=== PATIENT | female | born 1985 | race American Indian/Alaskan Native ===

== ENCOUNTER 2017-08-27 11:37 | Emergency (ER) | payer MEDICARE ==
[2017-08-27 12:15] VITALS: BP 158/66
--- NOTE | 2017-08-27 12:45 | Emergency Department Report ---
HPI - General Chief Complaint: Dental/Oral Time Seen by Provider: 08/27/17 12:40 - HPI HPI: Patient reports that she is having in mild pain to her left upper and lower to 2 days. She states she has taken several pain medication to include Tylenol 3 and other iyle-[id number]-bzzsjur medication and also antibiotic which did not help. She states that she is unable to get in with a dentist because of her insurance. Pain is 10 out of 10 and hurting. Worse with eating. No drooling, sore throat or difficulty breathing. Denies any sinus or nasal congestion. ED Past Medical Hx - Past Medical History Previous Medical History?: No - Surgical History Past Surgical History?: No - Family History Family history: no significant - Social History Smoking Status: Current Every Day Smoker Substance Use Type: None Other Social History: Single - Medications Home Medications: Home Medications Medication Instructions Recorded Confirmed Last Taken Type Amoxicillin/K Clav Tab [Augmentin 1 tab PO BID #20 tablet 05/10/14 Unknown Rx 875MG] Fluticasone Propionate [Flonase] 2 sprays NS QDAY #1 spray 05/10/14 Unknown Rx Loratadine [Claritin] 10 mg PO DAILY #30 tablet 05/10/14 Unknown Rx predniSONE [Deltasone] 50 mg PO QDAY #5 tab 05/10/14 Unknown Rx Clindamycin [Clindamycin CAP] 300 mg PO Q8H #30 cap 08/27/17 Unknown Rx HYDROcodone/APAP 7.5-325 [Holton 1 each PO Q6HR PRN #12 tablet 08/27/17 Unknown Rx 7.5-325 mg TAB] Ibuprofen [Motrin] 600 mg PO Q8H PRN #15 tablet 08/27/17 Unknown Rx ED Review of Systems ROS: Stated complaint: MOUTH HURTING Other details as noted in HPI Comment: All other systems reviewed and negative Constitutional: no symptoms reported Eyes: denies: eye pain, eye discharge, vision change ENT: dental pain. denies: ear pain, throat pain, congestion Respiratory: no symptoms reported Cardiovascular: denies: chest pain, palpitations, dyspnea on exertion, edema, syncope Gastrointestinal: denies: nausea, vomiting Musculoskeletal: denies: back pain, arthralgia Skin: denies: rash Neurological: denies: headache Physical Exam - Physical Exam Vital Signs: Vital Signs 08/27/17 12:13 Temperature 98.2 F Pulse Rate 90 Respiratory 16 Rate Blood Pressure 158/66 O2 Sat by Pulse 100 Oximetry General: This is a 31-year-old female well-nourished well-developed in no acute distress. Physical Exam: Head: Normocephalic, atraumatic, no abrasion, no bruising and no contusion. Eyes: Biateral pupils equal and reactive to light, bilateral EOM intact.. Bilateral conjunctival and sclera without injection, normal accommodation. Ears: Bilateral EAC without any redness drainage or swelling,Bilateral TM pearly turcios, bilateral tragus is normal and nontender. No auricular abnormality. No Mastoid bones tenderness. Nose: Moist, normal mucosa. No maxillary or frontal sinus tenderness. Mouth: Moist, no pharyngeal erythema or exudate. No peritonsillar abscess. Uvula is midline and oral airways patent. tongue is normal. Noted dental caries . No Dental tenderness. no cellulitis or induration. Positive gingivitis. Positive tenderness to gum. Neck: Supple, No Cervical adenopathy, full range of motion and no C-spine tenderness. No swelling or tracheal deviation Cardiovascular: S1, S2. Regular rate and rhythm. No murmur. Capillary refill is less then 3 seconds. Lungs: Clear to auscultate bilaterally. No rhonchi, wheezes or rales. No chest wall tenderness Extremities: No clubbing, cyanosis or edema. +2 pulses. No neurovascular compromise Skin: Clean, dry and intact. No rash or lesions. Psych: Normal mood and behavior. ED Course Vital Signs 08/27/17 12:13 Temperature 98.2 F Pulse Rate 90 Respiratory 16 Rate Blood Pressure 158/66 O2 Sat by Pulse 100 Oximetry - Reevaluation(s) Reevaluation #1: 08/27/17 12:47 Patient stable throughout ED stay ED Medical Decision Making - Medical Decision Making ED course: Patient here complaining of toothache that has been ongoing. Physical findings for gingivitis and dental caries. I discussed the patient that she should follow-up with [facility] to call today to schedule an appointment. Patient given prescription for Holton, Motrin and clindamycin and to follow-up with dentist. She was understanding the discharge diagnosis and treatment plan and discharged home in stable condition. Critical care attestation.: If time is entered above; I have spent that time in minutes in the direct care of this critically ill patient, excluding procedure time. ED Disposition Clinical Impression: Tooth ache, Dental caries, Gingivitis Disposition: - TO HOME OR SELFCARE Is pt being admited?: No Does the pt Need Aspirin: No Condition: Stable Instructions: Dental Caries (ED), Toothache (ED), Gingivitis (ED) Additional Instructions: Please gargle with Listerine mouthwash 2 times a day FLoss 2 times a day Follow-up a [facility] dental clinic as instructed Take antibiotic as instructed Please do not drive or operate heavy machinery while taking Holton as this medication will cause drowsiness. Prescriptions: Clindamycin [Clindamycin CAP] 300 mg PO Q8H #30 cap HYDROcodone/APAP 7.5-325 [Holton 7.5-325 mg TAB] 1 each PO Q6HR PRN #12 tablet PRN Reason: Pain Ibuprofen [Motrin] 600 mg PO Q8H PRN #15 tablet PRN Reason: Pain Referrals: [facility] [Outside] - 2-[address] [facility] [Outside] - 2-3 Days Forms: Work/School Release Form(ED)
== END 2017-08-27 13:08 | disposition home or self-care (01) ==
LOC: ED 11:37
DX: K02.9 Dental caries, unspecified (principal); K05.10 Chronic gingivitis, plaque induced; F17.200 Nicotine dependence, unspecified, uncomplicated
CPT/HCPCS: 99282